=== PATIENT | female | born 1990 | race Caucasian/White ===

== ENCOUNTER 2022-01-25 19:25 | Emergency (ER) | payer BC ==
[2022-01-25 20:31] LABS: Basophils % (A) 0 %; Eosinophils # (A) 0.1 k/uL (0-0.7); Eosinophils % (A) 1 %; HCT 44.4 % (34.0-46.0); HGB 14.8 gm/dL (11.4-16.0); Lymphocytes # (A) 0.8 k/uL (1.0-4.8); Lymphocytes % (A) 9 %; MCH 30.3 pg (25.0-35.0); MCHC 33.4 g/dL (31.0-37.0); MCV 90.6 fL (80.0-100.0); Mean Platelet Volume 6.8; Monocytes # (A) 0.3 k/uL (0-1.0); Monocytes % (A) 3 %; Neutrophils # (A) 8.1 k/uL (1.3-7.7); Neutrophils % (A) 87 %; Platelet Count 279 k/uL (150-450); RBC 4.91 m/uL (3.80-5.40); RDW 12.4 % (11.5-15.5); WBC 9.3 k/uL (3.8-10.6)
[2022-01-25 20:40] LABS: ALT 20 U/L (4-34); AST 21 U/L (14-36); African American GFR (CKD) >90 (>60 ml/min/1.73 sqM); Albumin 4.5 g/dL (3.5-5.0); Alkaline Phosphatase 95 U/L (38-126); Anion Gap 10 mmol/L; Blood Urea Nitrogen 11 mg/dL (7-17); Calcium 9.2 mg/dL (8.4-10.2); Carbon Dioxide 23 mmol/L (22-30); Chloride 103 mmol/L (98-107); Glucose 105 mg/dL (74-99); Non-African American GFR(CKD) >90 (>60 ml/min/1.73 sqM); Potassium 3.7 mmol/L (3.5-5.1); Sodium 136 mmol/L (137-145); Total Bilirubin 0.8 mg/dL (0.2-1.3); Total Protein 7.6 g/dL (6.3-8.2)
[2022-01-25 20:59] LABS: Appearance,Urine Clear (Clear); Bilirubin,Urine Negative (Negative); Blood,Urine Moderate (Negative); Color,Urine Yellow; Glucose,Urine (UA) Negative (Negative); Hyaline Casts,Urine 1 /lpf (0-2); Ketones,Urine Negative (Negative); Leukocyte Esterase,Urine Small (Negative); Mucus,Urine Few /hpf; Nitrite,Urine Negative (Negative); PH, Urine 5.5 (5.0-8.0); Protein,Urine Trace (Negative); RBC,Urine 147 /hpf (0-5); Specific Gravity,Urine 1.032 (1.001-1.035); Squamous Epithelial Cell,Urine 2 /hpf (0-4); WBC,Urine 10 /hpf (0-5)
[2022-01-25] MEDS ORDERED: PIPERACILLIN-TAZOBACTAM 3.375 GM in SODIUM CHLORIDE 0.9% 100 ML IVPB STA (23:38)
[2022-01-25] MEDS ORDERED: SODIUM CHLORIDE 0.9% 1,000 ML IV STA (23:38)
[2022-01-25] MEDS ORDERED: ACETAMINOPHEN IV (For NPO) 1,000 MG in SALINE 100 100ML.BAG IVPB STA (23:47)
[2022-01-25] MEDS ORDERED: ONDANSETRON 4 MG/2 ML VIAL IVP STA (23:47)
[2022-01-26 00:21] LABS: Amylase 69 U/L (30-110); Lipase 56 U/L (23-300)
--- NOTE | 2022-01-26 00:27 | US ---
EXAMINATION TYPE: US gallbladder DATE OF EXAM: 01/26/2022 COMPARISON: NONE CLINICAL HISTORY: Abdominal pain. Nausea, vomiting, fever, RUQ pain EXAM MEASUREMENTS: Liver Length: 9.1 cm Gallbladder Wall: 0.2 cm CBD: 0.2 cm Right Kidney: 9.8 x 6.0 x 5.8 cm Pancreas: wnl Liver: wnl Gallbladder: wnl, scanned intercostally due to overlying bowel gas Evidence for sonographic Paz's sign: RUQ tenderness here CBD: wnl Right Kidney: wnl, scanned coronal and prone due to overlying bowel gas IMPRESSION: There is no focal liver defect. No gallstones or dilated ducts. No evidence of pancreatic mass.
[2022-01-26 00:39] LABS: HCG,Quantitative Serum <2.4 mIU/mL
--- NOTE | 2022-01-26 01:13 | ED ---
General Adult HPI - General Chief complaint: Nausea/Vomiting/Diarrhea Stated complaint: Nausea, Abdominal Pain, Fever Time Seen by Provider: 01/25/22 23:38 Source: patient, RN notes reviewed Mode of arrival: ambulatory - History of Present Illness Initial comments: This is a pleasant 31-year-old female who presents to the emergency department complaining of right upper quadrant abdominal pain which started about 6 AM this morning. Patient has had some nausea and vomiting. No problems with urination. Has had a fever with chills. No radiation to the back. No alleviating or exacerbating factors. No shortness of breath or chest pain. No headache, no changes in vision or hearing, no sore throat or difficulty with speech, no neck pain, no chest pain or shortness of breath,, no changes in urination or bowel movements, no numbness or tingling, no extremity pain, no skin rashes or lesions. Patient went to urgent care and had a negative COVID-19 test. Was sent here for evaluation. - Related Data Allergies Allergy/AdvReac Type Severity Reaction Status Date / Time No Known Allergies Allergy Verified 01/25/22 20:15 Review of Systems ROS Statement: Those systems with pertinent positive or pertinent negative responses have been documented in the HPI. ROS Other: All systems not noted in ROS Statement are negative. Past Medical History Past Medical History: No Reported History History of Any Multi-Drug Resistant Organisms: None Reported Past Surgical History: No Surgical Hx Reported Past Psychological History: No Psychological Hx Reported Smoking Status: Never smoker Past Alcohol Use History: Rare Past Drug Use History: None Reported General Exam - General Exam Comments Initial Comments: Patient tachycardic, febrile, tenderness in the right upper quadrant area. Does not appear to be toxic but does appear to be somewhat ill. Vital signs reviewed General appearance: alert, in no apparent distress Head exam: Present: atraumatic, normocephalic, normal inspection Eye exam: Present: normal appearance, PERRL, EOMI. Absent: scleral icterus, conjunctival injection, periorbital swelling ENT exam: Present: normal exam, mucous membranes moist Neck exam: Present: normal inspection. Absent: tenderness, meningismus, lymphadenopathy Respiratory exam: Present: normal lung sounds bilaterally. Absent: respiratory distress, wheezes, rales, rhonchi, stridor Cardiovascular Exam: Present: regular rate, normal rhythm, tachycardia, normal heart sounds. Absent: systolic murmur, diastolic murmur, rubs, gallop, clicks GI/Abdominal exam: Present: tenderness, normal bowel sounds. Absent: distended, guarding, rebound, rigid Extremities exam: Present: normal inspection, full ROM, normal capillary refill. Absent: tenderness, pedal edema, joint swelling, calf tenderness Back exam: Present: normal inspection Neurological exam: Present: alert, oriented X3, CN II-XII intact Psychiatric exam: Present: normal affect, normal mood Skin exam: Present: warm, dry, intact, normal color. Absent: rash Course Vital Signs 01/25/22 01/26/22 20:11 00:15 Temperature 101.9 F H Pulse Rate 124 H 93 Respiratory 16 18 Rate Blood Pressure 134/78 123/69 O2 Sat by Pulse 100 97 Oximetry - Reevaluation(s) Reevaluation #1: 01/26/22 01:11 Medical record is reviewed Symptoms are somewhat improved, gallbladder ultrasound was negative Patient is informed of results and questions answered Patient in no distress Reevaluation #2: 01/26/22 02:46 Medical record is reviewed Symptoms are improved--no vomiting here in the ER. Able to hold down fluids. Patient is informed of results and questions answered Patient in no distress Medical Decision Making - Medical Decision Making We'll repeat a COVID-19 test. Patient has no respiratory symptoms. Differential would include cholecystitis, other intra-abdominal inflammatory ve rsus inflammatory etiology. Less likely be appendicitis as the patient's tenderness is higher in the abdomen. However this is a possibility. Intra- abdominal abscesses possibility. The case was discussed in detail with ED attending physician. Presentation, findings, treatment plan discussed in detail. Patient able to hold down fluids in the ER. We'll keep the patient on a clear liquid diet. Follow-up parameters given. All questions answered. All diagnostic tests discussed. No acute findings on ultrasound or computed tomography scan. Note that the patient currently is on her menstrual period. Urine was contaminated. No evidence of infectious process - Lab Data Result diagrams: 01/25/22 20:19 01/25/22 20:19 Lab Results 01/25/22 01/25/22 01/25/22 Range/Units 20:19 20:19 20:19 WBC 9.3 (3.8-10.6) k/uL RBC 4.91 (3.80-5.40) m/uL Hgb 14.8 (11.4-16.0) gm/dL Hct 44.4 (34.0-46.0) % MCV 90.6 (80.0-100.0) fL MCH 30.3 (25.0-35.0) pg MCHC 33.4 (31.0-37.0) g/dL RDW 12.4 (11.5-15.5) % Plt Count 279 (150-450) k/uL MPV 6.8 Neutrophils % 87 % Lymphocytes % 9 % Monocytes % 3 % Eosinophils % 1 % Basophils % 0 % Neutrophils # 8.1 H (1.3-7.7) k/uL Lymphocytes # 0.8 L (1.0-4.8) k/uL Monocytes # 0.3 (0-1.0) k/uL Eosinophils # 0.1 (0-0.7) k/uL Basophils # 0.0 (0-0.2) k/uL Sodium 136 L (137-145) mmol/L Potassium 3.7 (3.5-5.1) mmol/L Chloride 103 (98-107) mmol/L Carbon Dioxide 23 (22-30) mmol/L Anion Gap 10 mmol/L BUN 11 (7-17) mg/dL Creatinine 0.84 (0.52-1.04) mg/dL Est GFR (CKD-EPI)AfAm >90 (>60 ml/min/1.73 sqM) Est GFR (CKD-EPI)NonAf >90 (>60 ml/min/1.73 sqM) Glucose 105 H (74-99) mg/dL Plasma Lactic Acid Nathaniel (0.7-2.0) mmol/L Calcium 9.2 (8.4-10.2) mg/dL Total Bilirubin 0.8 (0.2-1.3) mg/dL AST 21 (14-36) U/L ALT 20 (4-34) U/L Alkaline Phosphatase 95 (38-126) U/L Total Protein 7.6 (6.3-8.2) g/dL Albumin 4.5 (3.5-5.0) g/dL Amylase (30-110) U/L Lipase (23-300) U/L HCG, Quant mIU/mL Urine Color Yellow Urine Appearance Clear (Clear) Urine pH 5.5 (5.0-8.0) Ur Specific Libby 1.032 (1.001-1.035) Urine Protein Trace H (Negative) Urine Glucose (UA) Negative (Negative) Urine Ketones Negative (Negative) Urine Blood Moderate H (Negative) Urine Nitrite Negative (Negative) Urine Bilirubin Negative (Negative) Urine Urobilinogen 2.0 (<2.0) mg/dL Ur Leukocyte Esterase Small H (Negative) Urine RBC 147 H (0-5) /hpf Urine WBC 10 H (0-5) /hpf Ur Squamous Epith Cells 2 (0-4) /hpf Hyaline Casts 1 (0-2) /lpf Urine Mucus Few H (None) /hpf Urine HCG, Qual (Not Detectd) Coronavirus (PCR) (Not Detectd) 01/25/22 01/25/22 01/26/22 Range/Units 20:19 20:19 00:41 WBC (3.8-10.6) k/uL RBC (3.80-5.40) m/uL Hgb (11.4-16.0) gm/dL Hct (34.0-46.0) % MCV (80.0-100.0) fL MCH (25.0-35.0) pg MCHC (31.0-37.0) g/dL RDW (11.5-15.5) % Plt Count (150-450) k/uL MPV Neutrophils % % Lymphocytes % % Monocytes % % Eosinophils % % Basophils % % Neutrophils # (1.3-7.7) k/uL Lymphocytes # (1.0-4.8) k/uL Monocytes # (0-1.0) k/uL Eosinophils # (0-0.7) k/uL Basophils # (0-0.2) k/uL Sodium (137-145) mmol/L Potassium (3.5-5.1) mmol/L Chloride (98-107) mmol/L Carbon Dioxide (22-30) mmol/L Anion Gap mmol/L BUN (7-17) mg/dL Creatinine (0.52-1.04) mg/dL Est GFR (CKD-EPI)AfAm (>60 ml/min/1.73 sqM) Est GFR (CKD-EPI)NonAf (>60 ml/min/1.73 sqM) Glucose (74-99) mg/dL Plasma Lactic Acid Nathaniel 1.6 (0.7-2.0) mmol/L Calcium (8.4-10.2) mg/dL Total Bilirubin (0.2-1.3) mg/dL AST (14-36) U/L ALT (4-34) U/L Alkaline Phosphatase (38-126) U/L Total Protein (6.3-8.2) g/dL Albumin (3.5-5.0) g/dL Amylase 69 (30-110) U/L Lipase 56 (23-300) U/L HCG, Quant <2.4 mIU/mL Urine Color Urine Appearance (Clear) Urine pH (5.0-8.0) Ur Specific [place] (1.001-1.035) Urine Protein (Negative) Urine Glucose (UA) (Negative) Urine Ketones (Negative) Urine Blood (Negative) Urine Nitrite (Negative) Urine Bilirubin (Negative) Urine Urobilinogen (<2.0) mg/dL Ur Leukocyte Esterase (Negative) Urine RBC (0-5) /hpf Urine WBC (0-5) /hpf Ur Squamous Epith Cells (0-4) /hpf Hyaline Casts (0-2) /lpf Urine Mucus (None) /hpf Urine HCG, Qual Not Detected (Not Detectd) Coronavirus (PCR) (Not Detectd) 01/26/22 Range/Units 00:41 WBC (3.8-10.6) k/uL RBC (3.80-5.40) m/uL Hgb (11.4-16.0) gm/dL Hct (34.0-46.0) % MCV (80.0-100.0) fL MCH (25.0-35.0) pg MCHC (31.0-37.0) g/dL RDW (11.5-15.5) % Plt Count (150-450) k/uL MPV Neutrophils % % Lymphocytes % % Monocytes % % Eosinophils % % Basophils % % Neutrophils # (1.3-7.7) k/uL Lymphocytes # (1.0-4.8) k/uL Monocytes # (0-1.0) k/uL Eosinophils # (0-0.7) k/uL Basophils # (0-0.2) k/uL Sodium (137-145) mmol/L Potassium (3.5-5.1) mmol/L Chloride (98-107) mmol/L Carbon Dioxide (22-30) mmol/L Anion Gap mmol/L BUN (7-17) mg/dL Creatinine (0.52-1.04) mg/dL Est GFR (CKD-EPI)AfAm (>60 ml/min/1.73 sqM) Est GFR (CKD-EPI)NonAf (>60 ml/min/1.73 sqM) Glucose (74-99) mg/dL Plasma Lactic Acid Nathaniel (0.7-2.0) mmol/L Calcium (8.4-10.2) mg/dL Total Bilirubin (0.2-1.3) mg/dL AST (14-36) U/L ALT (4-34) U/L Alkaline Phosphatase (38-126) U/L Total Protein (6.3-8.2) g/dL Albumin (3.5-5.0) g/dL Amylase (30-110) U/L Lipase (23-300) U/L HCG, Quant mIU/mL Urine Color Urine Appearance (Clear) Urine pH (5.0-8.0) Ur Specific Libby (1.001-1.035) Urine Protein (Negative) Urine Glucose (UA) (Negative) Urine Ketones (Negative) Urine Blood (Negative) Urine Nitrite (Negative) Urine Bilirubin (Negative) Urine Urobilinogen (<2.0) mg/dL Ur Leukocyte Esterase (Negative) Urine RBC (0-5) /hpf Urine WBC (0-5) /hpf Ur Squamous Epith Cells (0-4) /hpf Hyaline Casts (0-2) /lpf Urine Mucus (None) /hpf Urine HCG, Qual (Not Detectd) Coronavirus (PCR) Not Detected (Not Detectd) Disposition Clinical Impression: Gastritis, Abdominal pain, Fever Disposition: HOME SELF-CARE Condition: Stable Instructions (If sedation given, give patient instructions): Acute Nausea and Vomiting (ED), Abdominal Pain (ED) Additional Instructions: Clear liquid diet for the next 12-24 hours. Advance diet as tolerated thereafter. Make a follow-up appointment with the regular physician as discussed. Return to the ER at any time if any symptoms worsen or any other problems arise. Use [id number] Tylenol for pain and discomfort. You can use the Zofran, 1 every 8 hours as needed for vomiting. return here to the ER within 12-24 hours if symptoms do not improve. Is patient prescribed a controlled substance at d/c from ED?: No Referrals: Bi Cabrera [STAFF PHYSICIAN] - 01/28/22 Time of Disposition: 02:53
[2022-01-26 01:22] VITALS: RESP 18
--- NOTE | 2022-01-26 01:23 | XR ---
EXAMINATION TYPE: XR abdomen acute w cxr DATE OF EXAM: 01/26/2022 COMPARISON: NONE HISTORY: Abdominal pain TECHNIQUE: 4 views FINDINGS: Heart and mediastinum are normal. Lungs are clear. Diaphragm is normal. Bowel gas pattern is normal. There is no sign of intestinal obstruction or pneumoperitoneum. Fecal pa ttern is normal. There is no evidence of a mass. There are no calcifications over the kidneys. IMPRESSION: Nonacute abdomen. Normal chest.
--- NOTE | 2022-01-26 02:33 | CT ---
EXAMINATION TYPE: CT abdomen pelvis w con DATE OF EXAM: 01/26/2022 COMPARISON: None HISTORY: Right-sided abdominal pain and tenderness. CT DLP: 823.9 mGycm Automated exposure control for dose reduction was used. CONTRAST: Performed with IV Contrast, patient injected with 100ml mL of Isovue 300. Images obtained from the diaphragm to the floor of the pelvis with IV contrast. Lung bases are clear. There is no pleural effusion. Heart size is normal. There is no pericardial eff usion. Liver spleen pancreas gallbladder and stomach appear intact. The bile ducts are nondilated. There is no adrenal mass. Kidneys show satisfactory contrast opacification. There is no hydronephrosi s. Ureters are not dilated. Appendix is posterior and appears normal. Uterus is anteverted. Bladder d istends smoothly. There is no free fluid in the pelvis. No evidence of pelvic mass. There is no mesenteric edema. There is no ascites or free air. No bowel obstruction. Lumbar vertebra have normal alignment. Posterior elements are intact. No compression fracture. The maurice [place] pelvis is intact. The hip joints are intact. IMPRESSION: Negative CT scan abdomen and pelvis. Normal appendix.
[2022-01-26] MEDS ORDERED: ACETAMINOPHEN TAB 500 MG TAB PO STA (02:43)
[2022-01-26] MEDS ORDERED: ONDANSETRON 4 MG ODT STARTER PACK 2 TAB BTL PO STA (02:46)
[2022-01-26 03:16] VITALS: BP 105/73; PULSE 74
[2022-01-26 03:17] VITALS: TEMP 98.5
== END 2022-01-26 03:26 | disposition home or self-care (01) ==
LOC: EC 19:25
DX: K29.70 Gastritis, unspecified, without bleeding (principal); R50.9 Fever, unspecified; Z20.822 Contact with and (suspected) exposure to COVID-19
CPT/HCPCS: 36415; 80053; 82150; 83605; 83690; 85025; 81001; 81025; 84702; 87040; 87635; 74022; 76705; 74177; 99284; 96365; 96375 ×2; J2543; J2405; J0131; S0119; Q9967

== ENCOUNTER 2023-02-22 05:04 | Emergency (ER) | payer BC ==
[2023-02-22 05:10] VITALS: BP 139/76; PULSE 76; RESP 18; TEMP 97.8
[2023-02-22] MEDS ORDERED: ONDANSETRON 4 MG/2 ML VIAL IVP STA (06:20)
[2023-02-22] MEDS ORDERED: SODIUM CHLORIDE 0.9% 1,000 ML IV STA (06:20)
[2023-02-22] MEDS ORDERED: MORPHINE SULFATE 4 MG/ML SYRINGE IVP STA (06:20)
--- NOTE | 2023-02-22 06:30 | ED ---
General Adult HPI - General Source: patient, RN notes reviewed Mode of arrival: ambulatory Limitations: no limitations <Filemon Vazquez - Last Filed: 02/22/23 07:50> <Bry Beaulieu - Last Filed: 02/22/23 08:16> - General Chief complaint: Abdominal Pain Stated complaint: Left Side abdominal Pain Time Seen by Provider: 02/22/23 05:54 - History of Present Illness Initial comments: 32-year-old female with past medical history listed below presents to the emergency room for a chief complaint of left flank pain. This just started a few hours ago. Patient was sleeping and it woke her up out of her sleep. Patie nt states the pain was a 10 out of 10 but is improving. It started to improve after she urinated. She was nauseous and vomiting but that has also resolved. Patient is currently trying to get so is concerned about . She denies any abdominal pain. Denies any vaginal bleeding. She denies a history of kidney stones. No fevers or chills. She has had urinary tract infections in the past and states this feels similar. Patient has no other complaints at this time including shortness of breath, chest pain, abdominal pain, nausea or vomiting, headache, or visual changes. (Filemon Vazquez) - Related Data Allergies Allergy/AdvReac Type Severity Reaction Status Date / Time No Known Allergies Allergy Verified 02/22/23 05:08 Review of Systems ROS Other: All systems not noted in ROS Statement are negative. <Filemon Vazquez - Last Filed: 02/22/23 07:50> ROS Other: All systems not noted in ROS Statement are negative. <Bry Beaulieu - Last Filed: 02/22/23 08:16> ROS Statement: Those systems with pertinent positive or pertinent negative responses have been documented in the HPI. Past Medical History Past Medical History: No Reported History History of Any Multi-Drug Resistant Organisms: None Reported Past Surgical History: No Surgical Hx Reported Past Psychological History: No Psychological Hx Reported Smoking Status: Never smoker Past Alcohol Use History: Rare Past Drug Use History: None Reported <Filemon Vazquez - Last Filed: 02/22/23 07:50> General Exam Limitations: no limitations General appearance: alert, in no apparent distress Head exam: Present: atraumatic Eye exam: Present: normal appearance, PERRL, EOMI. Absent: scleral icterus, co njunctival injection ENT exam: Present: normal exam, mucous membranes moist Neck exam: Present: normal inspection, full ROM Respiratory exam: Present: normal lung sounds bilaterally. Absent: respiratory distress, wheezes Cardiovascular Exam: Present: regular rate, normal heart sounds GI/Abdominal exam: Present: soft, normal bowel sounds. Absent: distended, tenderness Back exam: Absent: CVA tenderness (R), CVA tenderness (L) <Filemon Vazquez - Last Filed: 02/22/23 07:50> Course Vital Signs 02/22/23 05:08 Temperature 97.8 F Pulse Rate 76 Respiratory 18 Rate Blood Pressure 139/76 O2 Sat by Pulse 98 Oximetry Medical Decision Making - Lab Data Result diagrams: 02/22/23 06:28 02/22/23 06:28 <Filemon Vazquez - Last Filed: 02/22/23 07:50> - Lab Data Result diagrams: 02/22/23 06:28 02/22/23 06:28 <Bry Beaulieu - Last Filed: 02/22/23 08:16> - Medical Decision Making The patient was signed out to me by previous shift physician reference library assistant, Filemon Vazquez. Briefly, patient 32-year-old female presents to emergency department for left-sided flank pain. She did have a CT that was positive for 2.3 mm distal left ureter kidney stone. Patient reevaluated at bedside at 8:15 AM states that her pain completely resolved. Likely she had passed a stone. Patient discharged as follow-up with primary care doctor. She is given referral to urology. (Bry Beaulieu) - Lab Data Lab Results 02/22/23 02/22/23 02/22/23 Range/Units 06:28 06:28 06:28 WBC 8.3 (3.8-10.6) k/uL RBC 4.65 (3.80-5.40) m/uL Hgb 14.3 (11.4-16.0) gm/dL Hct 42.3 (34.0-46.0) % MCV 90.8 (80.0-100.0) fL MCH 30.7 (25.0-35.0) pg MCHC 33.8 (31.0-37.0) g/dL RDW 12.3 (11.5-15.5) % Plt Count 235 (150-450) k/uL MPV 7.4 Neutrophils % 70 % Lymphocytes % 23 % Monocytes % 4 % Eosinophils % 1 % Basophils % 1 % Neutrophils # 5.8 (1.3-7.7) k/uL Lymphocytes # 1.9 (1.0-4.8) k/uL Monocytes # 0.3 (0-1.0) k/uL Eosinophils # 0.1 (0-0.7) k/uL Basophils # 0.1 (0-0.2) k/uL Sodium (137-145) mmol/L Potassium (3.5-5.1) mmol/L Chloride (98-107) mmol/L Carbon Dioxide (22-30) mmol/L Anion Gap mmol/L BUN (7-17) mg/dL Creatinine (0.52-1.04) mg/dL Est GFR (CKD-EPI)AfAm (>60 ml/min/1.73 sqM) Est GFR (CKD-EPI)NonAf (>60 ml/min/1.73 sqM) Glucose (74-99) mg/dL Calcium (8.4-10.2) mg/dL Total Bilirubin (0.2-1.3) mg/dL AST (14-36) U/L ALT (4-34) U/L Alkaline Phosphatase (38-126) U/L Total Protein (6.3-8.2) g/dL Albumin (3.5-5.0) g/dL Amylase (30-110) U/L Lipase (23-300) U/L Urine Color Yellow Urine Appearance Cloudy H (Clear) Urine pH 6.0 (5.0-8.0) Ur Specific Fab[place] 1.029 (1.001-1.035) Urine Protein 1+ H (Negative) Urine Glucose (UA) Negative (Negative) Urine Ketones Negative (Negative) Urine Blood Large H (Negative) Urine Nitrite Negative (Negative) Urine Bilirubin Negative (Negative) Urine Urobilinogen <2.0 (<2.0) mg/dL Ur Leukocyte Esterase Negative (Negative) Urine RBC >182 H (0-5) /hpf Urine WBC 3 (0-5) /hpf Ur Squamous Epith Cells 20 H (0-4) /hpf Urine Mucus Few H (None) /hpf Urine HCG, Qual Not Detected (Not Detectd) 02/22/23 Range/Units 06:28 WBC (3.8-10.6) k/uL RBC (3.80-5.40) m/uL Hgb (11.4-16.0) gm/dL Hct (34.0-46.0) % MCV (80.0-100.0) fL MCH (25.0-35.0) pg MCHC (31.0-37.0) g/dL RDW (11.5-15.5) % Plt Count (150-450) k/uL MPV Neutrophils % % Lymphocytes % % Monocytes % % Eosinophils % % Basophils % % Neutrophils # (1.3-7.7) k/uL Lymphocytes # (1.0-4.8) k/uL Monocytes # (0-1.0) k/uL Eosinophils # (0-0.7) k/uL Basophils # (0-0.2) k/uL Sodium 140 (137-145) mmol/L Potassium 4.3 (3.5-5.1) mmol/L Chloride 107 (98-107) mmol/L Carbon Dioxide 26 (22-30) mmol/L Anion Gap 7 mmol/L BUN 14 (7-17) mg/dL Creatinine 0.71 (0.52-1.04) mg/dL Est GFR (CKD-EPI)AfAm >90 (>60 ml/min/1.73 sqM) Est GFR (CKD-EPI)NonAf >90 (>60 ml/min/1.73 sqM) Glucose 121 H (74-99) mg/dL Calcium 9.0 (8.4-10.2) mg/dL Total Bilirubin 0.6 (0.2-1.3) mg/dL AST 22 (14-36) U/L ALT 20 (4-34) U/L Alkaline Phosphatase 115 (38-126) U/L Total Protein 7.0 (6.3-8.2) g/dL Albumin 4.3 (3.5-5.0) g/dL Amylase 50 (30-110) U/L Lipase 71 (23-300) U/L Urine Color Urine Appearance (Clear) Urine pH (5.0-8.0) Ur Specific [place] (1.001-1.035) Urine Protein (Negative) Urine Glucose (UA) (Negative) Urine Ketones (Negative) Urine Blood (Negative) Urine Nitrite (Negative) Urine Bilirubin (Negative) Urine Urobilinogen (<2.0) mg/dL Ur Leukocyte Esterase (Negative) Urine RBC (0-5) /hpf Urine WBC (0-5) /hpf Ur Squamous Epith Cells (0-4) /hpf Urine Mucus (None) /hpf Urine HCG, Qual (Not Detectd) Disposition Is patient prescribed a controlled substance at d/c from ED?: No Time of Disposition: 07:50 <Filemon Vazquez - Last Filed: 02/22/23 07:50> Is patient prescribed a controlled substance at d/c from ED?: No <Bry Beaulieu - Last Filed: 02/22/23 08:16> Clinical Impression: Kidney stone Disposition: HOME SELF-CARE Condition: Good Instructions (If sedation given, give patient instructions): Kidney Stones (ED) Referrals: Shea Tinajero MD [Primary Care Provider] - 1-2 days Chavez Dubon MD [STAFF PHYSICIAN] - 1-2 days
[2023-02-22 06:47] LABS: Basophils # (A) 0.1 k/uL (0-0.2); Basophils % (A) 1 %; Eosinophils # (A) 0.1 k/uL (0-0.7); Eosinophils % (A) 1 %; HCT 42.3 % (34.0-46.0); HGB 14.3 gm/dL (11.4-16.0); Lymphocytes # (A) 1.9 k/uL (1.0-4.8); Lymphocytes % (A) 23 %; MCH 30.7 pg (25.0-35.0); MCHC 33.8 g/dL (31.0-37.0); MCV 90.8 fL (80.0-100.0); Mean Platelet Volume 7.4; Monocytes # (A) 0.3 k/uL (0-1.0); Monocytes % (A) 4 %; Neutrophils # (A) 5.8 k/uL (1.3-7.7); Neutrophils % (A) 70 %; Platelet Count 235 k/uL (150-450); RBC 4.65 m/uL (3.80-5.40); RDW 12.3 % (11.5-15.5); WBC 8.3 k/uL (3.8-10.6)
[2023-02-22 06:53] LABS: Appearance,Urine Cloudy (Clear); Bilirubin,Urine Negative (Negative); Blood,Urine Large (Negative); Color,Urine Yellow; Glucose,Urine (UA) Negative (Negative); Ketones,Urine Negative (Negative); Leukocyte Esterase,Urine Negative (Negative); Mucus,Urine Few /hpf; Nitrite,Urine Negative (Negative); Protein,Urine 1+ (Negative); RBC,Urine >182 /hpf (0-5); Specific Gravity,Urine 1.029 (1.001-1.035); Squamous Epithelial Cell,Urine 20 /hpf (0-4); Urobilinogen,Urine <2.0 mg/dL (<2.0); WBC,Urine 3 /hpf (0-5)
[2023-02-22 07:09] LABS: ALT 20 U/L (4-34); AST 22 U/L (14-36); African American GFR (CKD) >90 (>60 ml/min/1.73 sqM); Albumin 4.3 g/dL (3.5-5.0); Alkaline Phosphatase 115 U/L (38-126); Amylase 50 U/L (30-110); Anion Gap 7 mmol/L; Blood Urea Nitrogen 14 mg/dL (7-17); Carbon Dioxide 26 mmol/L (22-30); Chloride 107 mmol/L (98-107); Glucose 121 mg/dL (74-99); Lipase 71 U/L (23-300); Non-African American GFR(CKD) >90 (>60 ml/min/1.73 sqM); Potassium 4.3 mmol/L (3.5-5.1); Sodium 140 mmol/L (137-145); Total Bilirubin 0.6 mg/dL (0.2-1.3)
[2023-02-22] MEDS ORDERED: KETOROLAC 15 MG/ML 1 ML VIAL IVP STA (07:09)
--- NOTE | 2023-02-22 07:38 | CT ---
EXAMINATION TYPE: CT abdomen pelvis wo con DATE OF EXAM: 02/22/2023 COMPARISON: 01/26/2022 HISTORY: Left side back pain. R/O renal stone. CT DLP: 696.3 mGycm Examination of the solid and hollow viscera is limited given the lack of contrast. FINDINGS: LUNG BASES: No evidence for nodule. No evidence for infiltrate. LIVER/GB: The gallbladder is unremarkable. No space-occupying hepatic lesion. PANCREAS: No pancreatic mass identified. No inflammatory process seen. SPLEEN: No evidence for splenomegaly. No intrasplenic lesions seen. ADRENALS: No adrenal nodules identified. No evidence for thickening. KIDNEYS: There is mild fullness of the left renal collecting system up to the distal left ureter wher e there is a 2.3 mm calculus. Additional calculi within the pelvis reflect phlebolith formation. No additional renal calculi seen. No evidence for renal mass. No significant perinephric stranding. BOWEL: Appendix has a normal appearance. No evidence of bowel obstruction. No inflammatory process. Lymph nodes: No evidence for adenopathy greater than 1 cm. Abdominal aorta: Atheromatous changes seen. No evidence for aneurysm. Genital organs: No significant abnormality. Other: No significant abnormality. IMPRESSION: There is mild fullness of the left renal collecting system up to the distal left ureter where there i s a 2.3 mm calculus.
--- NOTE | 2023-02-22 08:05 | XR ---
EXAMINATION TYPE: XR KUB DATE OF EXAM: 02/22/2023 COMPARISON: NONE HISTORY: Pain TECHNIQUE: Single supine KUB image of the abdomen is obtained FINDINGS: Small bowel demonstrates no evidence for dilatation or air fluid levels. Gas and fecal material is seen in non-distended colon. No convincing evidence for pneumoperitoneum. Vague calcific density in the region of the left UVJ. Phlebolith noted left hemipelvis. The lung bases are clear. The osseous structures are intact. IMPRESSION: 1. Vague calcific density in the region of the left UVJ.
== END 2023-02-22 09:03 | disposition home or self-care (01) ==
LOC: EC 05:04
DX: N20.0 Calculus of kidney (principal)
CPT/HCPCS: 36415; 80053; 82150; 83690; 85025; 81001; 81025; 74018; 74176; 99284; 96374; 96375 ×2; 96361; J2270; J2405; J1885

== ENCOUNTER → 2023-11-29 | Outpatient (CLI) | payer BC | END | disposition home or self-care (01) | LOC: LABWHC1 09:33 | PROVIDERS: ATTEND Obstetrics & Gynecology | DX: O20.0 Threatened abortion (principal) | CPT/HCPCS: 36415; 84702 ==

== ENCOUNTER → 2023-12-01 | Outpatient (CLI) | payer BC | END | disposition home or self-care (01) | LOC: LABWHC1 10:12 | PROVIDERS: ATTEND Obstetrics & Gynecology | DX: O20.0 Threatened abortion (principal); Z3A.00 Weeks of gestation of pregnancy not specified | CPT/HCPCS: 36415; 84702 ==

== ENCOUNTER → 2023-12-02 | Outpatient (CLI) | payer BC ==
[~2023-12-02] MED LIST: METHOTREXATE SODIUM (PF) 25 MG/ML 2 ML VIAL IM NR
[2023-12-02 14:34] VITALS: RESP 16
== END ==
LOC: PROCWHC3 13:36
PROVIDERS: ATTEND Physician Assistant
DX: O00.90 Unspecified ectopic pregnancy without intrauterine pregnancy (principal)
CPT/HCPCS: 96372; J9260

== ENCOUNTER → 2023-12-02 | Outpatient (CLI) | payer BC ==
[2023-12-02 13:04] LABS: HCT 40.3 % (37.2-46.3); HGB 13.5 g/dL (12.0-15.0); MCH 30.1 pg (27.0-32.0); MCHC 33.5 g/dL (32.0-37.0); MCV 89.8 FL (80.0-97.0); Mean Platelet Volume 9.5 FL (9.5-12.2); NRBC Per 100 WBC 0 X 10*3/uL (0.00-0.01); Platelet Count 246 X 10*3/uL (140-440); RBC 4.49 X 10*6/uL (4.10-5.20); RDW 12.3 % (11.5-14.5); WBC 8.15 X 10*3/uL (4.50-10.00)
[2023-12-02 13:48] LABS: ALT 16 U/L (8-44); AST 12 U/L (13-35); Albumin 4.5 g/dL (3.8-4.9); Albumin/Globulin Ratio 1.73 Ratio (1.60-3.17); Alkaline Phosphatase 112 U/L (41-126); BUN/Creat Ratio 17.14 Ratio (12.00-20.00); Calcium 9.6 mg/dL (8.7-10.3); Carbon Dioxide 24.3 mmol/L (21.6-31.8); Chloride 105 mmol/L (96-109); Globulin 2.6 g/dL (1.6-3.3); Glucose 100 mg/dL (70-110); Potassium 3.9 mmol/L (3.5-5.5); Sodium 141 mmol/L (135-145); Total Bilirubin 0.4 mg/dL (0.3-1.2); Total Protein 7.1 g/dL (6.2-8.2)
== END | disposition home or self-care (01) ==
LOC: LABWHC1 08:21
PROVIDERS: ATTEND Obstetrics & Gynecology
DX: O00.90 Unspecified ectopic pregnancy without intrauterine pregnancy (principal); Z3A.00 Weeks of gestation of pregnancy not specified
CPT/HCPCS: 36415; 80053; 84702; 85027; 86850; 86900; 86901

== ENCOUNTER → 2023-12-05 | Outpatient (CLI) | payer BC | END | disposition home or self-care (01) | LOC: LABWHC1 08:27 | PROVIDERS: ATTEND Obstetrics & Gynecology | DX: O00.90 Unspecified ectopic pregnancy without intrauterine pregnancy (principal) | CPT/HCPCS: 36415; 84702 ==

== ENCOUNTER → 2023-12-09 | Outpatient (CLI) | payer BC | END | disposition home or self-care (01) | LOC: LABWHC1 08:23 | PROVIDERS: ATTEND Obstetrics & Gynecology | DX: O00.90 Unspecified ectopic pregnancy without intrauterine pregnancy (principal) | CPT/HCPCS: 36415; 84702 ==

== ENCOUNTER → 2024-04-10 | Outpatient (CLI) | payer BC | END | disposition home or self-care (01) | LOC: LABWHC1 08:29 | PROVIDERS: ATTEND Obstetrics & Gynecology | DX: O20.0 Threatened abortion (principal); Z3A.00 Weeks of gestation of pregnancy not specified | CPT/HCPCS: 36415; 84702 ==

== ENCOUNTER → 2024-04-12 | Outpatient (CLI) | payer BC | END | disposition home or self-care (01) | LOC: LABWHC1 08:33 | PROVIDERS: ATTEND Obstetrics & Gynecology | DX: O20.0 Threatened abortion (principal); Z3A.00 Weeks of gestation of pregnancy not specified | CPT/HCPCS: 36415; 84702 ==

== ENCOUNTER → 2024-04-14 | Outpatient (CLI) | payer BC ==
[2024-04-14 18:12] LABS: HCT 41.8 % (37.2-46.3); HGB 13.4 g/dL (12.0-15.0); MCH 29.5 pg (27.0-32.0); MCHC 32.1 g/dL (32.0-37.0); MCV 91.9 FL (80.0-97.0); Mean Platelet Volume 9.6 FL (9.5-12.2); NRBC Per 100 WBC 0 X 10*3/uL (0.00-0.01); Platelet Count 286 X 10*3/uL (140-440); RBC 4.55 X 10*6/uL (4.10-5.20); RDW 12.6 % (11.5-14.5); WBC 7.33 X 10*3/uL (4.50-10.00)
== END | disposition home or self-care (01) ==
LOC: LABWHC1 07:51
PROVIDERS: ATTEND Obstetrics & Gynecology
DX: O20.0 Threatened abortion (principal); Z3A.00 Weeks of gestation of pregnancy not specified
CPT/HCPCS: 36415; 84144; 84702; 85027

== ENCOUNTER → 2024-04-19 | Outpatient (CLI) | payer BC | END | disposition home or self-care (01) | LOC: LABWHC1 08:08 | PROVIDERS: ATTEND Obstetrics & Gynecology | DX: O20.0 Threatened abortion (principal); Z3A.00 Weeks of gestation of pregnancy not specified | CPT/HCPCS: 36415; 84702 ==

== ENCOUNTER → 2024-04-26 | Outpatient (CLI) | payer BC | END | disposition home or self-care (01) | LOC: LABWHC1 07:39 | PROVIDERS: ATTEND Obstetrics & Gynecology | DX: O02.1 Missed abortion (principal); Z3A.00 Weeks of gestation of pregnancy not specified | CPT/HCPCS: 36415; 84702 ==

== ENCOUNTER → 2024-05-14 | Outpatient (CLI) | payer BC ==
--- NOTE | 2024-05-15 09:59 | FL ---
Fluoroscopy INDICATION: Infertility FINDINGS: Fluoroscopy time: 15 seconds. Total dose area product (DAP) in uGy*m?, mGy*cm? (or similar): 2 7-0.43 Images obtained: 78. PROCEDURE: The procedure was explained to the patient risk patients (. All questions are answered. Wr itten and verbal informed consent was obtained. Patient was placed on the fluoroscopy table. Speculum was inserted and the cervix was localized. Cerv ix have a somewhat irregular coloration around the cervical os. Discrete mass or ulceration however i s not identified. The vaginal vault was cleansed with Betadine. The catheter was placed with vague di scomfort for the patient. The balloon was inflated without discomfort difficulty. 2.5 mL of contrast was administered without resistance. The balloon was deflated and additional contrast was placed as t he catheter was withdrawn. Discharge instructions were discussed with the patient. Patient was released in stable condition lyla lazar tolerated the procedure very well. FINDINGS: There is easy filling of the contrast into the normal-appearing uterus. With the balloon de flated uterus maintains a normal appearance. Contrast passes through the thin delicate fallopian tube s without resistance. Easy free spill into the pelvis was observed. In the prone position there is fr ee spill of the contrast through the pelvis. IMPRESSION: 1. Patency of the fallopian tubes with normal appearing uterus. Normal hysterosalpingogram. 2. There may be some discoloration of the cervical os prior to the procedure. Physical pelvic exam re commended.
== END | disposition home or self-care (01) ==
LOC: RADUSWWP 13:22
PROVIDERS: ATTEND Obstetrics & Gynecology
DX: N97.9 Female infertility, unspecified (principal); Z87.59 Personal history of other complications of pregnancy, childbirth and the puerperium
CPT/HCPCS: 58340; 74740; Q9967

== ENCOUNTER 2024-08-24 23:26 | Emergency (ER) | payer BC ==
[2024-08-25] MEDS: TRANEXAMIC ACID 1,000 MG/10 ML VIAL IRRIGATION ONE ×2 (00:15→01:26)
[2024-08-25] MEDS ORDERED: CELLULOSE,OXIDIZED 1 EACH EACH MISCELLANE STA (00:36)
--- NOTE | 2024-08-25 02:11 | ED ---
General Adult HPI - General Chief complaint: Dental/Oral Stated complaint: Post op- dental Time Seen by Provider: 08/24/24 23:45 Source: patient, RN notes reviewed, old records reviewed Mode of arrival: ambulatory Limitations: no limitations - History of Present Illness Initial comments: Is a 33-year-old female who is approximately 15 weeks at this time. Does follow-up with [employer] [facility]. Presents after dental procedure today, and is hav ing bleeding from the upper and lower gums. Primarily in the posterior aspect which has been oozing since earlier this evening. Presents as after she brushed her teeth it noticeably got worse. No history of any platelet issues, anemia, clotting disorders. Patient is currently . Is on a baby aspirin at home only. Has no other acute complaints or symptoms at this time. Presents for further evaluation. - Related Data Home Medications Medication Instructions Recorded Confirmed Escitalopram [Lexapro] 5 mg PO DAILY 12/02/23 12/02/23 Allergies Allergy/AdvReac Type Severity Reaction Status Date / Time No Known Allergies Allergy Verified 12/02/23 14:10 Review of Systems ROS Statement: Those systems with pertinent positive or pertinent negative responses have been documented in the HPI. Review of Systems: CONST: Denies fever EYES: Denies blurry vision ENT: Endorses gum bleeding C/V: Denies Chest pain RESP: Denies shortness of breath GI: Denies abdominal pain : Denies dysuria SKIN: Denies rash. MSK: Denies joint pain. NEURO: Denies headache ROS Other: All systems not noted in ROS Statement are negative. Past Medical History Past Medical History: No Reported History History of Any Multi-Drug Resistant Organisms: None Reported Past Surgical History: No Surgical Hx Reported Past Psychological History: No Psychological Hx Reported Smoking Status: Never smoker Past Alcohol Use History: None Reported, Occasional Past Drug Use History: None Reported General Exam - General Exam Comments Initial Comments: General: Appears in no acute distress. HEAD: Normal with no signs of head trauma. EYES: EOMI. ENT: Patient has bleeding along the gumline above the upper and lower gums on the left. Primarily upper. No obvious open wound. Mostly located in the posterior most molars. RESPIRATORY: No respiratory distress. C/V: Regular rate and rhythm. ABD: Abdomen is nondistended. EXT: No obvious deformity. SKIN: No rashes or lesions observed on exposed skin. NEURO: Alert and oriented. Limitations: no limitations Course Vital Signs 08/24/24 08/25/24 23:32 02:42 Temperature 97.8 F 98.1 F Pulse Rate 125 H 78 Respiratory 20 18 Rate Blood Pressure 130/85 121/79 O2 Sat by Pulse 94 L 99 Oximetry Medical Decision Making - Medical Decision Making Was pt. sent in by a medical professional or institution (, [facility], [facility], urgent care, hospital, or halfway...) When possible be specific @ -No Did you speak to anyone other than the patient for history (EMS, parent, family, police, friend...)? What history was obtained from this source @ -No Did you review nursing and triage notes (agree or disagree)? Why? @ -I reviewed and agree with nursing and triage notes Were old charts reviewed (outside hosp., previous admission, EMS record, old EKG, old radiological studies, urgent care reports/EKG's, halfway records)? Report findings @ -No old charts were reviewed Differential Diagnosis (chest pain, altered mental status, abdominal pain women, abdominal pain men, vaginal bleeding, weakness, fever, dyspnea, syncope, headache, dizziness, GI bleed, back pain, seizure, CVA, palpatations, mental health, musculoskeletal)? @ -Gum bleeding, postop bleeding, postop complication. This list is not all inclusive. EKG interpreted by me (3pts min.). @ -None done X-rays interpreted by me (1pt min.). @ -None done CT interpreted by me (1pt min.). @ -None done U/S interpreted by me (1pt. min.). @ -None done What testing was considered but not performed or refused? (CT, X-rays, U/S, labs)? Why? @ -None What meds were considered but not given or refused? Why? @ -None Did you discuss the management of the patient with other professionals (professionals i.e. [facility]LE[facility] Gomez, [facility], lab, RT, psych nurse, sexual assault social worker, needle loom setter, teacher, delinquency prevention officer, case reviewer)? Give summary @ -Mother baby came down and performed heart tones which were within acceptable limits. Was smoking cessation discussed for >3mins.? @ -No Was critical care preformed (if so, how long)? @ -No Were there social determinants of health that impacted care today? How? (Homelessness, low income, unemployed, alcoholism, drug addiction, transportation, low edu. Level, literacy, decrease access to med. care, halfway, rehab)? @ -No Was there de-escalation of care discussed even if they declined (Discuss DNR or withdrawal of care, Hospice)? DNR status @ -No What co-morbidities impacted this encounter? (DM, HTN, Smoking, COPD, CAD, Cancer, CVA, ARF, Chemo, Hep., AIDS, mental health diagnosis, sleep apnea, morbid obesity)? @ - Was patient admitted / discharged? Hospital course, mention meds given and route, prescriptions, significant lab abnormalities, going to OR and other pertinent info. @ -Patient presents with gumline bleeding after dental procedure earlier today. Worsened when she brushes her teeth. Vital signs within acceptable limits. No symptoms of symptomatic anemia. We will initially attempt with Gelfoam as well as TXA soaked gauze to stop the bleeding. Patient was in agreement this plan. On reevaluation, patient was still having oozing from the sites. At this time, I did inject a total of 3 cc of lidocaine with epinephrine in the posterior asp ect of the upper and lower jaw near the posterior molars. TXA soaked gauze was once again placed. Will continue to monitor. Patient was in agreement this plan. OB did come down and perform heart tones. They were within acceptable limits. The posterior area of the bleeding did subside however patient began bleeding on the inner aspect of her back 3 molars. I subsequently injected an additional 2-3 cc of lidocaine 1% with epinephrine. Gelfoam was placed in TXA soaked gauze. After an additional observation period, bleeding seems to have subsided. Patient is tolerating oral intake. We will observe for an additional 15 to 20 minutes and as long as bleeding remains subsided, patient will be discharged. She was in agreement this plan. Recommended follow-up with dentistry as well as discussion with OB as I do suspect that her is likely related to the reason why she has been bleeding. Strict return precautions discussed. She was in agreement this plan. Laboratory studies returned within acceptable limits. I instructed the patient to follow up with their PCP in the next 1-3 days. I explained that the patient should return to the emergency department if they experience any worsening symptoms. Strict return precautions were discussed with the patient. The patient expressed understanding of these instructions. I answered all questions that the patient had. The patient was discharged home in good condition with their prescriptions and follow up information. Undiagnosed new problem with uncertain prognosis? @ -No Drug Therapy requiring intensive monitoring for toxicity (Heparin, Nitro, Insulin, Cardizem)? @ -No Were any procedures done? @ -Intraoral lidocaine injection with epinephrine for dental bleed Diagnosis/symptom? @ -Postop bleeding, dental bleed in the setting of Acute, or Chronic, or Acute on Chronic? @ -Acute Uncomplicated (without systemic symptoms) or Complicated (systemic symptoms)? @ -Uncomplicated Side effects of treatment? @ -None Exacerbation, Progression, or Severe Exacerbation] @ -No Poses a threat to life or bodily function? @ -Likely at this time - Lab Data Result diagrams: 08/25/24 02:38 08/25/24 02:38 Lab Results 08/25/24 08/25/24 08/25/24 Range/Units 02:38 02:38 02:38 WBC 12.5 H (3.8-10.6) k/uL RBC 4.16 (3.80-5.40) m/uL Hgb 13.0 (11.4-16.0) gm/dL Hct 38.0 (34.0-46.0) % MCV 91.4 (80.0-100.0) fL MCH 31.1 (25.0-35.0) pg MCHC 34.1 (31.0-37.0) g/dL RDW 13.0 (11.5-15.5) % Plt Count 215 (150-450) k/uL MPV 7.8 Neutrophils % 68 % Lymphocytes % 25 % Monocytes % 4 % Eosinophils % 1 % Basophils % 0 % Neutrophils # 8.5 H (1.3-7.7) k/uL Lymphocytes # 3.1 (1.0-4.8) k/uL Monocytes # 0.5 (0-1.0) k/uL Eosinophils # 0.1 (0-0.7) k/uL Basophils # 0.1 (0-0.2) k/uL PT 10.3 (10.0-12.5) sec INR 0.9 (<1.2) APTT 23.5 (22.0-30.0) sec Sodium 136 L (137-145) mmol/L Potassium 3.8 (3.5-5.1) mmol/L Chloride 106 (98-107) mmol/L Carbon Dioxide 25 (22-30) mmol/L Anion Gap 5 mmol/L BUN 9 (7-17) mg/dL Creatinine 0.55 (0.52-1.04) mg/dL Est GFR (CKD-EPI)AfAm >90 (>60 ml/min/1.73 sqM) Est GFR (CKD-EPI)NonAf >90 (>60 ml/min/1.73 sqM) Glucose 101 H (74-99) mg/dL Calcium 9.4 (8.4-10.2) mg/dL Disposition Clinical Impression: Post-op bleeding Disposition: HOME SELF-CARE Condition: Good Instructions (If sedation given, give patient instructions): Toothache (ED) Additional Instructions: Follow-up with your dentist. Return if any worsening symptoms. Is patient prescribed a controlled substance at d/c from ED?: No Referrals: Shea Tinajero MD [Primary Care Provider] - 1-2 days Time of Disposition: 04:00
[2024-08-25 02:43] VITALS: RESP 18
[2024-08-25 02:47] LABS: MCH 31.1 pg (25.0-35.0); MCHC 34.1 g/dL (31.0-37.0); MCV 91.4 fL (80.0-100.0); Mean Platelet Volume 7.8; Neutrophils % (A) 68 %; Platelet Count 215 k/uL (150-450); RBC 4.16 m/uL (3.80-5.40); WBC 12.5 k/uL (3.8-10.6)
[2024-08-25 02:48] LABS: Basophils # (A) 0.1 k/uL (0-0.2); Basophils % (A) 0 %; Eosinophils # (A) 0.1 k/uL (0-0.7); Eosinophils % (A) 1 %; Lymphocytes # (A) 3.1 k/uL (1.0-4.8); Lymphocytes % (A) 25 %; Monocytes # (A) 0.5 k/uL (0-1.0); Monocytes % (A) 4 %; Neutrophils # (A) 8.5 k/uL (1.3-7.7)
[2024-08-25 02:56] LABS: African American GFR (CKD) >90 (>60 ml/min/1.73 sqM); Anion Gap 5 mmol/L; Blood Urea Nitrogen 9 mg/dL (7-17); Calcium 9.4 mg/dL (8.4-10.2); Carbon Dioxide 25 mmol/L (22-30); Chloride 106 mmol/L (98-107); Glucose 101 mg/dL (74-99); Non-African American GFR(CKD) >90 (>60 ml/min/1.73 sqM); Potassium 3.8 mmol/L (3.5-5.1); Sodium 136 mmol/L (137-145)
[2024-08-25 03:28] LABS: INR 0.9 (<1.2); Partial Thromboplastin Time 23.5 sec (22.0-30.0); Prothrombin Time 10.3 sec (10.0-12.5)
[2024-08-25 03:56] VITALS: BP 116/76; PULSE 94; TEMP 97.9
== END 2024-08-25 04:04 | disposition home or self-care (01) ==
LOC: EC 23:26
CPT/HCPCS: 36415; 80048; 85025; 85610; 85730; 99283

== ENCOUNTER 2025-02-09 12:23 | Inpatient (IN) | payer BC ==
[2025-02-09 14:12] LABS: Basophils # (A) 0.08 10*3/uL (0.00-0.10); Basophils % (A) 0.6 %; Eosinophils # (A) 0.08 10*3/uL (0.04-0.35); Eosinophils % (A) 0.6 %; HCT 41.7 % (37.2-46.3); HGB 14.2 g/dL (12.0-15.0); Immature Platelet Fraction 6.1 % (1.1-6.1); Lymphocytes # (A) 3.33 10*3/uL (0.90-5.00); Lymphocytes % (A) 26.2 %; MCH 30.4 pg (27.0-32.0); MCHC 34.1 g/dL (32.0-37.0); MCV 89.3 fL (80.0-97.0); Monocytes # (A) 1.13 10*3/uL (0.20-1.00); Monocytes % (A) 8.9 %; Neutrophils % (A) 62.2 %; Platelet Count 138 10*3/uL (140-440); RBC 4.67 10*6/uL (4.10-5.20); RDW 13.7 % (11.5-14.5); WBC 12.71 10*3/uL (4.50-10.00)
[2025-02-09] MEDS ORDERED: METHYLERGONOVINE 0.2 MG/ML 1 ML AMP IM PRN (16:16)
[2025-02-09] MEDS ORDERED: OXYTOCIN 10 UNIT/ML 1 ML VIAL IM PRN (16:16)
[2025-02-09] MEDS ORDERED: TERBUTALINE 1 MG/ML VIAL SQ PRN (16:16)
[2025-02-09] MEDS ORDERED: miSOPROStoL 200 MCG TAB RECTAL PRN (16:16)
[2025-02-09] MEDS ORDERED: CARBOPROST TROMETHAMINE 250 MCG/ML 1 ML AMP IM PRN (16:16)
[2025-02-09] MEDS ORDERED: TRANEXAMIC 1,000 MG/100ML-NACL 1,000 MG in EMPTY BAG 1 BAG IV PRN (16:16)
[2025-02-09] MEDS ORDERED: LIDOCAINE 0.5% (PF) 5 MG/ML (50 ML SDV) SQ PRN (16:16)
[2025-02-09] MEDS ORDERED: miSOPROStoL 200 MCG TAB PO PRN (16:16)
[2025-02-09] MEDS: DINOPROSTONE 10 MG INSERT.ER VAGINAL ONE (16:22)
[2025-02-10] MEDS: LACTATED RINGERS 1,000 ML IV SCH (03:32)
[2025-02-10] MEDS: OXYTOCIN 30 UNITS/500 ML NS 30 UNIT in SALINE 1 500ML.BAG IV SCH (06:00)
[2025-02-10] MEDS: NALBUPHINE 10 MG/ML (10 ML MDV) IV PRN (12:14)
[2025-02-10] MEDS ORDERED: fentaNYL (PF) 50 MCG/ML 5 ML AMP ONE (15:17)
[2025-02-10] MEDS ORDERED: SODIUM CHLORIDE 0.9% 250 ML BAG ONE (15:17)
[2025-02-10] MEDS ORDERED: ROPIVACAINE 5 MG/ML 30 ML VIAL ONE (15:17)
--- NOTE | 2025-02-10 20:45 | P.MSEPDOC ---
Presenting Problems - Arrival Data Date of Arrival on Unit: 02/09/25 Time of Arrival on Unit: 13:35 Mode of Transport: Ambulatory - Complaint OB-Reason for Admission/Chief Complaint: Other Comment: sesnt from office for monitoring, for bakari 7 and rule out labor Medical History - Information : 5 Para: 0 Term: 0 : 0 Abortions: Spontaneous or Elective: 4 Number of Living Children: 0 - Gestational Age Gestational Age by CINDY (wks/days): 39 Weeks and 4 Days Review of Systems - Review of Systems Constitutional: No problems Breast: No problems ENT: No problems Cardiovascular: No problems Respiratory: No problems Gastrointestinal: No problems Genitourinary: No problems Musculoskeletal: No problems Neurological: No problems Skin: No problems Vital Signs - Temperature Temperature: 97.5 F Temperature Source: Temporal Artery Scan - Pulse Right Sitting Pulse Rate: 91 Pulse Assessment Method: Automatic Cuff - Respirations Respiratory Rate: 16 Oxygen Delivery Method: Room Air O2 Sat by Pulse Oximetry: 98 - Blood Pressure Right Arm Blood Pressure: 142/80 Blood Pressure Mean: 100 Blood Pressure Source: Automatic Cuff Medical Screen Scoring - Cervical Exam Membranes: Intact - Uterine Contractions Intensity: Mild Resting: Soft to palpation - Assessment - Baby A Baseline FHR: 145 Heart Rate - NICHD Category: Category I (Normal) NST: Reactive Physician Notification - Physician Notified Physician Notified Date: 02/09/25 Physician Notified Time: 13:34 Physician: Vani Jesus New Order Received: Yes (admit) Disposition - Disposition OB Disposition: Admit, LDRP Suite I agree with the RN Medical Screening Exam: Yes Case reviewed; plan agreed upon as documented in EMR&OBIX.: Yes Diagnosis: RELATED CONDITIONS, UNSPECIFIED, THIRD TRIMESTER
[2025-02-10] MEDS: ONDANSETRON 4 MG/2 ML VIAL IVP STA (21:13)
[2025-02-10] MEDS ORDERED: miSOPROStoL 200 MCG TAB PO PRN (22:46)
[2025-02-10] MEDS: AMPICILLIN 2,000 MG in SODIUM CHLORIDE 0.9% 100 ML IVPB ONE (23:00)
[2025-02-11] MEDS: ACETAMINOPHEN IV (For NPO) 1,000 MG in EMPTY BAG 1 BAG IVPB ONE ×2 (00:37→16:34)
[2025-02-11] MEDS ORDERED: miSOPROStoL 200 MCG TAB PO PRN (02:15)
[2025-02-11] MEDS ORDERED: CARBOPROST TROMETHAMINE 250 MCG/ML 1 ML AMP IM PRN (02:15)
[2025-02-11] MEDS ORDERED: OXYTOCIN 30 UNITS/500 ML NS 30 UNIT in SALINE 1 500ML.BAG IV SCH (02:15)
[2025-02-11] MEDS ORDERED: METHYLERGONOVINE 0.2 MG/ML 1 ML AMP IM PRN (02:15)
[2025-02-11] MEDS ORDERED: OXYTOCIN 10 UNIT/ML 1 ML VIAL IM PRN (02:15)
[2025-02-11] MEDS ORDERED: TRANEXAMIC 1,000 MG/100ML-NACL 1,000 MG in EMPTY BAG 1 BAG IV PRN (02:15)
[2025-02-11] MEDS: CITRIC ACID-SODIUM CITRATE 15 ML CUP PO ONE (02:25)
[2025-02-11] MEDS: ceFAZolin 2 GM in DEXTROSE 5% IN WATER 50 ML IVPB ONE (02:25)
[2025-02-11] MEDS ORDERED: MORPHINE SULFATE (PF) 0.3 MG/0.3 ML SYR ONE (02:30)
[2025-02-11] MEDS ORDERED: fentaNYL (PF) 50 MCG/ML 2 ML AMP ONE (02:30)
--- NOTE | 2025-02-11 03:18 | P.HPOB ---
History of Present Illness H&P Date: 02/09/25 Chief Complaint: IUP at 39-4/7 weeks, low KEN This is a 34-year-old 5 para 0-0-4-0 at 39-4/7 weeks that presents to labor and delivery for induction of labor secondary to low KEN. Patient was seen for routine visit. Ultrasound performed with EFW 7 pounds 4 ounces, AC noted to be low at 10th percentile, KEN of 7. Patient states she began eve around 4 AM irregular in nature. Patient denies vaginal bleeding or loss of fluid. Patient has been receiving routine care with myself On blood work this patient is up a type of O+, rubella status immune, hepatitis B surface and negative, HIV negative, RPR is nonreactive, group A st rep culture is negative Review of Systems Constitutional: Denies chills, Denies fatigue, Denies fever Ears, nose, mouth and throat: Denies headache Cardiovascular: Reports leg edema Respiratory: Denies dyspnea Gastrointestinal: Denies nausea, Denies vomiting Genitourinary: Reports Past Medical History Past Medical History: No Reported History History of Any Multi-Drug Resistant Organisms: None Reported Past Surgical History: No Surgical Hx Reported Past Anesthesia/Blood Transfusion Reactions: No Reported Reaction Past Psychological History: No Psychological Hx Reported Smoking Status: Never smoker Past Alcohol Use History: None Reported Past Drug Use History: None Reported - Past Family History Sister(s) Family Medical History: Hypertension Medications and Allergies Home Medications Medication Instructions Recorded Confirmed Type Escitalopram [Lexapro] 5 mg PO DAILY 12/02/23 02/09/25 History Aspirin 81 mg PO DAILY 02/09/25 02/09/25 History Vit No.179/Iron/Folic 1 tab PO DAILY 02/09/25 02/09/25 History [ Tablet] Allergies Allergy/AdvReac Type Severity Reaction Status Date / Time No Known Allergies Allergy Verified 02/09/25 12:46 Exam Osteopathic Statement: *. No significant issues noted on an osteopathic structural exam other than those noted in the History and Physical/Consult. Vital Signs Temp Pulse Resp BP Pulse Ox 02/09/25 14:17 97.5 F L 91 16 142/80 98 Intake and Output 02/09/25 02/09/25 02/09/25 06:59 14:59 22:59 Other: Weight 94.347 kg Targeted physical exam is performed this date in general is well-nourished well- developed female in no acute distress, breathing is nonlabored, abdomen is gravid, cervical exam fingertip/70/-3 station, Cervidil is placed. heart tones are noted to be category 1 and she is eve irregularly. Results Result Diagrams: 02/09/25 13:55 Abnormal Lab Results - Last 24 Hours (Table) 02/09/25 Range/Units 13:55 WBC 12.71 H (4.50-10.00) 10*3/uL Plt Count 138 L (140-440) 10*3/uL Immature Gran # 0.19 H (0.00-0.04) 10*3/uL Neutrophils # 7.90 H (1.80-7.70) 10*3/uL Monocytes # 1.13 H (0.20-1.00) 10*3/uL Assessment and Plan (1) Term Narrative/Plan: Low KEN is appreciated at 7, EFW of 7 pounds 4 ounces Current Visit: Yes Status: Acute Code(s): Z34.90 - ENCNTR FOR SUPRVSN OF NORMAL , UNSP, UNSP TRIMESTER SNOMED Code(s): 69913439 Plan: 34-year-old 5 para 0 at 39-4/7 weeks admitted to labor and delivery for induction of labor. Plan Cervidil induction of labor Clear liquids as tolerated Nubain, nitrous, epidural if desired
--- NOTE | 2025-02-11 03:18 | P.OP ---
Date of Procedure: 02/11/25 Preoperative Diagnosis: IUP at 39-5/7 weeks, low KEN, arrest of descent Postoperative Diagnosis: Same Procedure(s) Performed: Primary low-transverse section Anesthesia: epidural Surgeon: Vani Jesus Bird Sitter #1: Debbie Boyd Estimated Blood Loss (ml): 706 IV fluids (ml): 1,000 Urine output (ml): 150 (Blood-tinged from insertion, clear in the Almazan catheter at the end of the procedure) Pathology: other (Placenta) Condition: stable Disposition: observation Indications for Procedure: 34-year-old 5 para 0-0-4-0 at 39-5/7 weeks that was admitted on 02/09 for Cervidil induction of labor. Patient was admitted overnight Cervidil was placed. Patient made minimal change through the night. The morning patient was noted to be 2 cm amniotomy was performed clear fluid was obtained. Patient made slow progress through the day, Pitocin augmentation of labor was begun. Patient did receive an epidural for analgesia during the labor process. Patient progressed to complete and began pushing. After approximately 2 and half hours of pushing no descent of the head beyond 0 station was appreciated. Exam findings were discussed with patient and support person. Questions were answered. Recommendation for primary secondary to arrest of descent was discussed and agreed upon. Anesthesia was notified Operative Findings: Viable female infant delivered at 02 44, weight of 6 pounds 6 ounces, Apgars of 8 and 9 at 1 and 5 minutes respectively. Arcuate uterus was appreciated Description of Procedure: The patient was prepped and draped in the usual fashion after epidural anesthesia was found to be adequate. A Pfannenstiel incision was made and extended of the abdominal cavity without difficulty. The bladder peritoneum was elevated and incised and reflected distally. A 2 cm incision was made in the transverse plane of the lower uterine segment to enter the uterus at which time clear fluid was noted. The incision was extended in both directions bluntly. The head was encountered within the field and delivered up and through the incision where the nose and mouth were thoroughly suctioned. Remainder of the infant was delivered onto the surgical field where the cord was doubly clamped, cut, and the was passed for resuscitative measures with weight and Apgars as noted above. The placenta was delivered manually, intact, and was grossly normal with a grossly normal three-vessel cord. The uterus was exteriorized and the interior cavity of the uterus swept of any remaining placental and membranous fragments with a laparotomy sponge. The margins of the incision were grasped with Allis clamps and the incision closed in 2 layers. First layer was a running locking layer of 0 Vicryl from margin to margin followed by a second layer of imbricating 0 Vicryl from margin to margin. Bleeding was noted on the right lateral edge therefore a [id number] suture was used to obtain hemost asis. A lower uterine segment vessel was appreciated and tied off with a simple tie of 0 Vicryl. Once hemostasis was achieved, the posterior cul-de-sac was suctioned with a guard and the uterine and ovarian findings are as noted above. The uterus was replaced within the abdominal cavity and the gutters swept of any remaining blood fluid or clot. The incision was again reexamined and hemostasis was noted to be excellent. Any small point of bleeding were made hemostatic with the Bovie. Once hemostasis was achieved the parietal peritoneum was loosely reapproximated. The layer of muscles were examined and made hemostatic with the Bovie. Attention was then turned to the fascia which was closed with 0 Vicryl in a running fashion from 1 lateral edge to the other. The subcutaneous tissues were irrigated, made hemostatic with the Bovie, and reapproximated with a running stitch of 30 Vicryl. The skin was reapproximated with 4-0 Vicryl. Estimated blood loss for the case was approximately 706 mL. All sponge instrument and needle counts are correct. There were no complications. The patient tolerated the procedure well and proceeded to the recovery room in stable condition. Both mother and infant are resting comfortably in recovery.
[2025-02-11] MEDS ORDERED: ZOLPIDEM 5 MG TAB PO PRN (04:01)
[2025-02-11] MEDS ORDERED: NALOXONE 0.4 MG/ML 1 ML VIAL IV PRN (04:01)
[2025-02-11] MEDS ORDERED: diphenhydrAMINE 25 MG CAP PO PRN (04:01)
[2025-02-11] MEDS ORDERED: diphenhydrAMINE 50 MG CAP PO PRN (04:01)
[2025-02-11] MEDS ORDERED: ONDANSETRON 4 MG/2 ML VIAL IVP PRN (04:01)
[2025-02-11] MEDS ORDERED: diphenhydrAMINE 50 MG/ML 1 ML VIAL IVP PRN ×2 (04:01)
[2025-02-11] MEDS ORDERED: METOCLOPRAMIDE 5 MG/ML 2 ML VIAL IVP PRN (04:01)
[2025-02-11] MEDS: AMPICILLIN 1,000 MG in SODIUM CHLORIDE 0.9% 50 ML IVPB SCH (04:16)
[2025-02-11] MEDS: LACTATED RINGERS 1,000 ML IV SCH (04:16)
[2025-02-11] MEDS: IBUPROFEN IV 800 MG in SODIUM CHLORIDE 0.9% 250 ML IV ONE (04:20)
[2025-02-11] MEDS: IBUPROFEN 800 MG TAB PO SCH (05:38)
[2025-02-11] MEDS: PRENATAL VIT-IRON-FOLIC ACID 1 EACH TABLET PO SCH (07:50)
[2025-02-11] MEDS: SENNOSIDES-DOCUSATE SODIUM 1 EACH TAB PO SCH (07:50)
[2025-02-11] MEDS: ESCITALOPRAM 5 MG TAB PO SCH (08:49)
[2025-02-11] MEDS: ACETAMINOPHEN TAB 500 MG TAB PO SCH (16:21)
[2025-02-12] MEDS: SIMETHICONE 80 MG CHEWABLE PO PRN (00:30)
[2025-02-12 06:46] LABS: Basophils # (A) 0.09 10*3/uL (0.00-0.10); Basophils % (A) 0.5 %; Eosinophils # (A) 0.06 10*3/uL (0.04-0.35); Eosinophils % (A) 0.3 %; HCT 34.3 % (37.2-46.3); HGB 11.5 g/dL (12.0-15.0); Lymphocytes # (A) 2.32 10*3/uL (0.90-5.00); Lymphocytes % (A) 12.2 %; MCH 30.5 pg (27.0-32.0); MCHC 33.5 g/dL (32.0-37.0); Mean Platelet Volume 10.4 fL (9.5-12.2); Monocytes # (A) 1.07 10*3/uL (0.20-1.00); Monocytes % (A) 5.6 %; Neutrophils % (A) 80.6 %; Platelet Count 142 10*3/uL (140-440); RBC 3.77 10*6/uL (4.10-5.20); RDW 14.3 % (11.5-14.5)
--- NOTE | 2025-02-12 09:13 | P.PNOBGPC ---
Subjective - Subjective Principal diagnosis: Postop day 1, status post section Interval history: Patient is doing well this morning. She is ambulating and voiding without difficulty. She is tolerating a regular diet without nausea or vomiting. Her pain is moderately well-controlled. She is pumping. Patient reports: Reports appetite normal, Reports voiding normally, Reports pain well controlled, Reports ambulating normally : doing well (In special care nursery) Objective - Vital Signs Latest vital signs: Vital Signs Temp Pulse Resp BP Pulse Ox 02/12/25 00:00 97.6 F 79 15 105/73 96 02/11/25 23:00 16 02/11/25 20:00 97.7 F 71 16 121/78 97 02/11/25 16:00 97.8 F 93 18 122/76 99 Intake and Output 02/11/25 02/12/25 02/12/25 22:59 06:59 14:59 Intake Total 960 Balance 960 Intake: Oral 960 Other: Voiding Method Toilet # Voids 2 1 - Exam Extremities: Present: normal, edema Abdomen: Present: normal appearance, soft Incision: Present: normal, dry, intact Uterus: Present: normal, firm - Labs Labs: Abnormal Lab Results - Last 24 Hours (Table) 02/12/25 Range/Units 05:44 WBC 19.00 H (4.50-10.00) 10*3/uL RBC 3.77 L (4.10-5.20) 10*6/uL Hgb 11.5 L (12.0-15.0) g/dL Hct 34.3 L (37.2-46.3) % Immature Gran # 0.16 H (0.00-0.04) 10*3/uL Neutrophils # 15.30 H (1.80-7.70) 10*3/uL Monocytes # 1.07 H (0.20-1.00) 10*3/uL Assessment and Plan (1) Term Current Visit: Yes Status: Acute Code(s): Z34.90 - ENCNTR FOR SUPRVSN OF NORMAL , UNSP, UNSP TRIMESTER SNOMED Code(s): 39965858 (2) Arrest of descent, delivered, current hospitalization Current Visit: Yes Status: Acute Code(s): O62.1 - SECONDARY UTERINE INERTIA SNOMED Code(s): 97655202 (3) Maternal fever affecting labor Current Visit: Yes Status: Acute Code(s): O75.2 - PYREXIA DURING LABOR, NOT ELSEWHERE CLASSIFIED SNOMED Code(s): 303135412 (4) Status post section Current Visit: Yes Status: Acute Code(s): Z98.891 - HISTORY OF UTERINE SCAR FROM PREVIOUS SURGERY SNOMED Code(s): 672910112 Plan: Doing well postoperatively Continue routine postoperative care
--- NOTE | 2025-02-12 13:23 | P.PN ---
Progress Note - Text Progress Note Date: 02/12/25 Postoperative day 1 status post section under spinal anesthesia, and intrathecal morphine given for postoperative analgesia, patient doing well, there is no anesthesia related complications, Patient had no headache, vital signs stable , Assessment and plan= postop day 1 status post , doing well there is no anesthesia related complication.
[2025-02-12 19:19] VITALS: RESP 16
[2025-02-13 06:12] LABS: HCT 31.7 % (37.2-46.3); HGB 10.5 g/dL (12.0-15.0); MCH 30.6 pg (27.0-32.0); MCHC 33.1 g/dL (32.0-37.0); MCV 92.4 fL (80.0-97.0); Mean Platelet Volume 10.2 fL (9.5-12.2); Platelet Count 146 10*3/uL (140-440); RBC 3.43 10*6/uL (4.10-5.20); RDW 14.4 % (11.5-14.5); WBC 13.41 10*3/uL (4.50-10.00)
[2025-02-13 08:43] VITALS: BP 124/79; PULSE 84; TEMP 97.6
--- NOTE | 2025-02-13 12:01 | P.DS ---
Providers Date of admission: 02/09/25 13:38 Expected date of discharge: 02/13/25 Attending physician: Vani Jesus Primary care physician: Stated None - Discharge Diagnosis(es) (1) Term Current Visit: Yes Status: Acute (2) Arrest of descent, delivered, current hospitalization Current Visit: Yes Status: Acute (3) Maternal fever affecting labor Current Visit: Yes Status: Acute (4) Status post section Current Visit: Yes Status: Acute Hospital Course: This is a 34yo presented to labor and delivery on 02/09 for Cervidil in duction of labor secondary to low amniotic fluid index. Patient was admitted and Cervidil was placed without difficulty. Patient had the Cervidil removed sample sawyer, Pitocin augmentation of labor was begun. Patient underwent amniotomy and clear fluid was obtained. Patient progressed to labor eventually becoming uncomfortable and requesting epidural. Epidural was placed without difficulty by the anesthesia department. Patient made progress toward complete dilation. Once completely dilated patient began pushing. After approximately 2+ hours of pushing no descent beyond the 0 station was appreciated. Patient in addition had maternal fever during pushing was given Ofirmev x 1. Antibiotics were begun. Patient was counseled on exam and no descent after 2 hours. Patient elected primary . She was taken back to the operating room where primary low-transverse section was performed without difficulty. Patient delivered a viable female infant at 244, weight of 6 pounds 6 ounces, Apgars of 8 and 9 at 1 and 5 minutes respectively. For full details on the please the dictated operative report. Patient's postoperative course has been uneventful. In this postoperative day #2 she is ambulating and voiding without difficulty. She is tolerating a regular diet without nausea or vomiting. She states her pain is well- controlled. She denies concerns. She would like discharge home when infant is discharged later today. Patient Condition at Discharge: Good Plan - Discharge Summary New Discharge Prescriptions: No Action Escitalopram [Lexapro] 5 mg PO DAILY Aspirin 81 mg PO DAILY Vit No.179/Iron/Folic [ Tablet] 1 tab PO DAILY Discharge Medication List Escitalopram [Lexapro] 5 mg PO DAILY 12/02/23 [History] Aspirin 81 mg PO DAILY 02/09/25 [History] Vit No.179/Iron/Folic [ Tablet] 1 tab PO DAILY 02/09/25 [Hi story] Follow up Appointment(s)/Referral(s): Vani Jesus DO [Doctor of Osteopathic Medicine] - 1 Week Patient Instructions/Handouts: Vaginal Delivery (DC), Vaginal Delivery (GEN) Activity/Diet/Wound Care/Special Instructions: No tub baths or intercourse until 6 weeks . [id number] ibuprofen 600 mg or 3 tablets every 6 hours as needed for pain. Patient is to call the office on Friday and schedule a routine postoperative check. Discharge Disposition: HOME SELF-CARE
== END 2025-02-13 17:15 | disposition home or self-care (01) | DRG 787 ==
LOC: FBPOP 12:23 → 4FBP 13:38
PROVIDERS: ADMIT Obstetrics & Gynecology Obstetrics; ATTEND Obstetrics & Gynecology Obstetrics
PROC: 3E0P7VZ Introduction of Hormone into Female Reproductive, Via Natural or Artificial Opening (ICD-10-PCS; 2025-02-09)
PROC: 10907ZC Drainage of Amniotic Fluid, Therapeutic from Products of Conception, Via Natural or Artificial Opening (ICD-10-PCS; 2025-02-10)
PROC: 10D00Z1 Extraction of Products of Conception, Low, Open Approach (ICD-10-PCS; principal; 2025-02-11 02:40)
DX: O41.8X30 Other specified disorders of amniotic fluid and membranes, third trimester, not applicable or unspecified (principal); O75.2 Pyrexia during labor, not elsewhere classified; O34.03 Maternal care for unspecified congenital malformation of uterus, third trimester; O62.1 Secondary uterine inertia; Q51.810 Arcuate uterus; Z79.82 Long term (current) use of aspirin; Z79.899 Other long term (current) drug therapy; Z3A.39 39 weeks gestation of pregnancy; Z37.0 Single live birth
CPT/HCPCS: 59025; 85025; 85027; 86850; 86900; 86901